=== PATIENT | male | born 1990 | race African-American/Black ===

== ENCOUNTER 2024-08-16 14:03 | Outpatient (AMB) | payer MEDICAID, SELFPAY ==
--- NOTE | 2024-08-16 14:30 | MHC.PC.OV ---
Vital Signs 08/16/24 14:37 Height 5 ft 7 in Weight 232 lb 4 oz BMI 36.4 BP 100/70 Blood Pressure Location Rt brachial Position Sitting Respiration 16 Pulse 88 Pulse Source Pulse Oximeter Temp 97.8 F Temp Source Tympanic Pulse Oximetry (%) 98 Oxygen Delivery Method Room Air Intake Visit Reasons: [employer]/ pcp to get hearing aids Intake Note: establish care Allergies No Known Allergies Allergy (Verified 08/16/24 14:31) Medication List - Last Reconciled 08/16/24 by Paco Beasley MD No Known Home Meds Tobacco use date assessed: 08/16/24 Dental Screening Dental Screen Date: 08/16/24 Did you have a dental visit in the last 12 months?: Yes Did you have a dental problem in the last 6 months where you did not have access to dental care?: No Was dental information given to patient?: Patient has dentist HPI [employer]/ pcp to get hearing aids HPI Details New Patient? ?? Prior PCP:? PCP in [facility] Last office visit/CPE:? Acute issue(s):? Establish care Cough ?? PMHx:?80% Hearing Loss in R ear and total hearing loss L ear., SurgHx:?None FHx:? Dad: Heart disease and Sudden Cardiac . SocHx:? Fdc house, Smokes 1 - 1.5 ppw, EtOH: None. MJ None. Has used Cpcaine & MJ but none in half way house. [facility] Social History (Updated 08/16/24 @ 14:34 by Jody Cao MA) Housing Other:: half way housing Patient Tobacco Use Status: Current everyday Tobacco user Cigarettes Per Day: 4 e-Cigarette/Vaping Use: Currently Using Second Hand Smoke Exposure: Yes Use of substances other than those prescribed or required for medical reasons: No service: No Current occupational status: unemployed Current occupational exposures/hazards: No Cognitive needs: No Hearing needs: Yes Vision needs: No Questionnaire PHQ-9 Over the last 2 weeks, how often have you been bothered by any of the following problems? 1. Little interest or pleasure in doing things: not at all 2. Feeling down, depressed, or hopeless: not at all 3. Trouble falling or staying asleep, or sleeping too much: not at all 4. Feeling tired or having little energy: several days 5. Poor appetite or overeating: not at all 6. Feeling bad about yourself - or that you are a failure or have let yourself or your family down: not at all 7. Trouble concentrating on things, such as reading the newspaper or watching television: not at all 8. Moving or speaking so slowly that other people could have noticed. Or the opposite - being so fidgety or restless that you have been moving around a lot more than usual: not at all 9. Thoughts that you would be better off or of hurting yourself in some way: not at all Total score: 1 Depression Screening Interpretation: Negative Depression Screening Done: Yes 25387 - PHQ-9 Billing: Yes Source: Developed by Drs. Mario Alberto Hinojosa, Ama Minaya, Marshall Steen and colleagues, with an educational yolis from [employer]. Thrive Questionnaire Date Thrive assessed: 08/16/24 I am a: Patient What is your living situation today?: I choose not to answer this question Within the past 12 months, did the food you bought not last and you didn't have the money to get more?: I choose not to answer this question Within the past 12 months, did you worry whether your food would run out before you got money to buy more?: I choose not to answer this question Do you have trouble paying for medicines?: I choose not to answer this question Do you have trouble getting transportation to medical appointments?: I choose not to answer this question Do you have trouble paying your heating and electricity bill?: I choose not to answer this question Do you have trouble taking care of your child, family member or friend?: I choose not to answer this question Do you have trouble with day-to-day activities such as bathing, preparing meals, shopping, managing finances, etc.?: I choose not to answer this question Are you currently unemployed and looking for a job?: I choose not to answer this question Are you interested in more education?: I choose not to answer this question Please select the resources that you would like help with: None Currently or been in a relationship where the following occur: No concerns reported THRIVE Score: 0 AUDIT C Alcohol Use Questionnaire (AUDIT-C) 1. How often do you have a drink containing alcohol?: Never 3. How often do you have six or more drinks on one occasion?: Never Total Score: 0 SAMANTHA-7 AMB Questionnaire SAMANTHA-7 Date SAMANTHA - 7 assessed: 08/16/24 Feeling nervous, anxious, or on edge: 0 = Not at all Not being able to stop or control worryin = Not at all Worrying too much about different things: 0 = Not at all Trouble relaxin = Not at all Being so restless that it is hard to sit still: 0 = Not at all Becoming easily annoyed or irritable: 0 = Not at all Feeling afraid as if something awful might happen: 0 = Not at all Total SAMANTHA-7 score (0-4 normal; 5-9 mild; 10-14 moderate; 15-21 severe): 0 Source: Developed by Drs. Mario Alberto Hinojosa, Ama Minaya, Marshall Steen and colleagues, with an educational yolis from [employer]. SAMANTHA-7 Assessment Billing SAMANTHA-7 Assessment Tool: SAMANTHA-7 Assessment 67019 Review of Systems Const Denies chills, Denies fatigue, Denies fever(s), Denies headache(s) and Denies weakness ENT Denies dizziness and Denies headache(s) Card Denies chest pain, Denies lightheadedness, Denies dyspnea and Denies other (Palpitations) Resp Reports cough, Denies dyspnea, Denies wheezing and Denies other ( shortness of breath) Musc Denies numbness and Denies tingling Neuro Denies dizziness, Denies headache(s), Denies numbness, Denies tingling, Denies paresthesias and Denies weakness Psych Denies anxiety and Denies depression Endo Denies fatigue Aller/Immun Denies wheezing Physical exam (Primary Care) Vital Signs: Last Vital Signs Temp 97.8 F 08/16/24 14:37 Pulse 88 08/16/24 14:37 Resp 16 08/16/24 14:37 BP 100/70 08/16/24 14:37 Pulse Ox 98 08/16/24 14:37 Oxygen Delivery Method Room Air 08/16/24 14:37 BMI result Body Mass Index 36.4 Tobacco/Smoking Status: Tobacco use Status Tobacco use date assessed 08/16/24 08/16/24 14:39 Patient Tobacco Use Status Current everyday Tobacco 08/16/24 14:39 e-Cigarette/Vaping Use Currently Using 08/16/24 14:39 PHQ-9: PHQ-9 Score PHQ-9: Total score 1 08/16/24 14:43 Depression Screening Interpretation: Negative Thrive Assessment: Date of Thrive Assessment Date Thrive assessed 08/16/24 08/16/24 14:39 Currently or been in a relationship where the following occur: No concerns reported Const General: no acute distress and well developed Nutritional Appearance: well nourished Orientation/consciousness: patient oriented x3 [facility] Head: Yes normocephalic and Yes atraumatic Eyes General: appearance normal, both eyes and all related structures Pupils: Equal, round and reactive pupils present EOM: EOMs intact bilaterally Resp Effort & Inspection: normal respiratory effort Auscultation: clear to auscultation bilaterally Cardio Rate: regular rate Rhythm: regular rhythm Heart sounds: S1 normal heart sound present, S2 normal heart sound present, no gallops, no murmurs and no rubs Neuro General: patient oriented x3 and gait normal Cranial nerves: Yes Equal, round and reactive pupils present Psych Affect: normal affect Assessment and Plan Assessment & Plan (1) Hearing loss: Code(s): H91.90 - Unspecified hearing loss, unspecified ear Plan: Around?hearing?loss?in?right?ear?and?total?hearing?loss?in?left?ear Patient?already?has?an?appointment?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 Follow-up?as?recommended (2) Smoker: Code(s): F17.200 - Nicotine dependence, unspecified, uncomplicated Plan: Advised?cessation Patient?is?able?to?get?nicotine?replacement?at?the?correction?house?he?lives?at?and?I?advised?this. (3) History of substance abuse: Code(s): F19.11 - Other psychoactive substance abuse, in remission Plan: Currently clean?and?in?half?way?house (4) Cough: Code(s): R05.9 - Cough, unspecified Plan: Resolving. Patient?had?had?cough?and?cold-like?symptoms He?was?tested?for?COVID?and?this?was?negative.??Already?improving Lungs?are?clear Hydrate?well?and?get?plenty?of?rest Call?or?return?to?office?if?worsening (5) Laboratory exam ordered as part of routine general medical examination: Code(s): Z00.00 - Encounter for general adult medical examination without abnormal findings Plan: Check?labs Orders: Orders Lipid Panel Today Z00.00 - Encounter for general adult medical examination without abnormal findings Microalbumin, Random (w Creat) Today I10 - Essential (primary) hypertension TSH reflex Free T4 Today Z00.00 - Encounter for general adult medical examination without abnormal findings CT NG by PCR Today Z11.3 - Encounter for screening for infections with a predominantly sexual mode of transmission Hepatitis B,C Profile Today Z11.3 - Encounter for screening for infections with a predominantly sexual mode of transmission Comprehensive [place]. Panel Fast Today Z00.00 - Encounter for general adult medical examination without abnormal findings Complete Blood Count Auto Diff Today Z00.00 - Encounter for general adult medical examination without abnormal findings UA and rflx microscopic Today Z00.00 - Encounter for general adult medical examination without abnormal findings HIV Ab/Ag Today Z11.3 - Encounter for screening for infections with a predominantly sexual mode of transmission Syphilis Screen Today Z11.3 - Encounter for screening for infections with a predominantly sexual mode of transmission Coding Level of Care Code New Pt Level 3 (71586) Diagnoses Hearing loss H91.90 Smoker F17.200 History of substance abuse F19.11 Cough R05.9 Laboratory exam ordered as part of routine general medical examination Z00.00 Additional Codes SAMANTHA-7 Assessment Billing - SAMANTHA-7 Assessment Tool: SAMANTHA-7 Assessment 55087 ([id number])
[2024-08-16 14:37] VITALS: BP 100/70; PULSE 88; RESP 16; TEMP 36.6; O2SAT 98; BMI 36.4
== END 2024-08-16 15:12 | disposition home or self-care (01) ==
PROVIDERS: PCP Internal Medicine; Visit Provider Family Medicine
DX: H91.90 Unspecified hearing loss, unspecified ear (principal); F17.200 Nicotine dependence, unspecified, uncomplicated; F19.11 Other psychoactive substance abuse, in remission; R05.9 Cough, unspecified; Z00.00 Encounter for general adult medical examination without abnormal findings

== ENCOUNTER → 2024-08-16 14:03 | Outpatient (BNVA) | payer MEDICAID, SELFPAY | PROVIDERS: PCP Internal Medicine; Visit Provider Family Medicine | DX: Z00.01 Encounter for general adult medical examination with abnormal findings (principal); H91.90 Unspecified hearing loss, unspecified ear; F19.11 Other psychoactive substance abuse, in remission; R05.9 Cough, unspecified | CPT/HCPCS: 96127; 99202 ==